=== PATIENT | male | born 1955 | race Hispanic/Latino ===

== ENCOUNTER 2021-05-22 07:59 | Day surgery (SDC) | payer OTHER ==
[2021-05-20 14:59] LABS: BASOPHILS % (AUTO) 0.5 % (0.0-5.0); EOSINOPHILS % (AUTO) 2.1 % (0.0-8.0); HEMATOCRIT 44.5 % (42-54); LYMPHOCYTES % (AUTO) 29.9 % (21.0-51.0); MEAN CORPUSCULAR HEMOGLOBIN 30.5 pg (27.0-33.0); MEAN CORPUSCULAR HGB CONC 34.2 g/dL (32.0-36.0); MEAN CORPUSCULAR VOLUME 89.4 fL (79-99); MONOCYTES % (AUTO) 7.6 % (3.0-13.0); NEUTROPHILS % (AUTO) 59.1 % (40.0-77.0); PLATELET COUNT (AUTO) 286 K/uL (130-400); RED BLOOD CELL COUNT(AUTO) 4.98 MIL/uL (4.50-6.20); WHITE BLOOD COUNT (AUTO) 8.4 K/uL (4.8-10.8)
[2021-05-20 15:00] LABS: APPEARANCE,URINE Clear (CLEAR); BILIRUBIN,URINE Negative (NEGATIVE); COLOR,URINE Yellow (YELLOW); GLUCOSE, URINE (UA) >=1000 mg/dL (NEGATIVE); KETONES,URINE Negative (NEGATIVE); LEUKOCYTE ESTERASE ,URINE Negative (NEGATIVE); NITRATE,URINE Negative (NEGATIVE); OCCULT BLOOD,URINE Negative (NEGATIVE); PH,URINE 5.5 (5.0-8.0); PROTEIN,URINE Negative (NEGATIVE)
[2021-05-20 15:14] LABS: CREATININE 1.1 mg/dL (0.5-1.5); POTASSIUM 3.6 mmol/L (3.5-5.1)
[2021-05-20 15:17] LABS: INR 1.07 (0.85-1.15); PROTHROMBIN TIME 11.6 SEC (9.6-11.6)
[2021-05-20 15:18] LABS: PARTIAL THROMBOPLASTIN TIME 28.8 SEC (26.3-35.5)
[2021-05-20 15:23] LABS: BACTERIA,URINE Rare /HPF (None Seen); RBC,URINE 0-1 /HPF (0-1); SQUAMOUS EPITHELIAL CELL,UR Rare /HPF (0-2); WBC,URINE 0-1 /HPF (0-1)
[2021-05-20 15:24] LABS: MUCUS,URINE Rare LPF (None Seen)
[2021-05-20 15:25] LABS: HYALINE CASTS, URINE 0-1 /LPF (0-1 /LPF)
[2021-05-21 10:16] VITALS: BP 150/76
[2021-05-22] VITALS (10 sets, daily range): BP systolic 123–156; BP diastolic 60–92
[~2021-05-22] VITALS: Ht 157.5 cm; Wt 73.8 kg
[~2021-05-22 07:59] MED LIST: 0.9% NACL 500ML IV.SOLN 500 ML IV SCH; AMLO2.5T4 PO; ATOR40TA71 PO; CHOL500050 PO; FENO54TA6 PO; GLIP10TA9 PO; LOSA1TAB37 PO; PIOG15TA66 PO
[2021-05-22] MEDS ORDERED: 0.9%NACL 1000ML 1,000 ML IV ONE (09:19)
[2021-05-22] MEDS ORDERED: MIDAZOLAM HCL 1 MG/ML 2ML VIAL ONE (10:43)
[2021-05-22] MEDS ORDERED: NITROGLYCERIN 50MG VIAL ONE (10:43)
[2021-05-22] MEDS ORDERED: HEPARIN 10,000 UNIT/10ML (1,000 UNIT/ML) VIAL ONE (10:43)
[2021-05-22] MEDS ORDERED: FENTANYL CITRATE PF 50 MCG/1 ML 2ML VIAL ONE (10:43)
[2021-05-22] MEDS ORDERED: IODIXANOL 320 MG/ML 100 ML VIAL ONE (10:43)
[2021-05-22] MEDS ORDERED: LIDOCAINE HCL 400MG/20ML VIAL ONE (10:57)
== END 2021-05-22 16:55 | disposition home or self-care (01) ==
LOC: DAH 07:59
PROVIDERS: ATTEND Internal Medicine Cardiovascular Disease
DX: I70.248 Atherosclerosis of native arteries of left leg with ulceration of other part of lower leg (principal); E11.51 Type 2 diabetes mellitus with diabetic peripheral angiopathy without gangrene; I10 Essential (primary) hypertension; E78.5 Hyperlipidemia, unspecified; F17.200 Nicotine dependence, unspecified, uncomplicated; S81.802A Unspecified open wound, left lower leg, initial encounter; Z79.01 Long term (current) use of anticoagulants; Z98.890 Other specified postprocedural states
CPT/HCPCS: 36245; 36415; 71045; 75716; 80048; 81001; 82948 ×2; 85025; 85610; 85730; 93005; A4215; A4216; A4221; A4222; A4223 ×3; A4606; A4663; C1760; C1769; C1894 ×2; J1644 ×2; J2250; J3010; J3490 ×2; J7030; Q9967; 36247; 99156; 99157

== ENCOUNTER → 2022-10-29 | Outpatient (CLI) | payer OTHER ==
[~2022-10-29] MED LIST changes: -0.9% NACL 500ML IV.SOLN 500 ML IV SCH
== END | disposition home or self-care (01) ==
LOC: SHCH 15:05
PROVIDERS: ATTEND Internal Medicine Cardiovascular Disease
DX: I08.0 Rheumatic disorders of both mitral and aortic valves (principal); I11.9 Hypertensive heart disease without heart failure; I73.9 Peripheral vascular disease, unspecified; E11.51 Type 2 diabetes mellitus with diabetic peripheral angiopathy without gangrene; E78.5 Hyperlipidemia, unspecified
CPT/HCPCS: 93306